=== PATIENT | male | born 1985 | race Caucasian/White ===

== ENCOUNTER 2021-04-19 13:07 | Emergency (ER) | payer MEDICAID ==
[2021-04-19] MEDS ORDERED: Diazepam 5 MG Tab PO STA (13:36)
--- NOTE | 2021-04-19 14:39 | EDM.PDOC ---
ED HPI GENERAL MEDICAL PROBLEM - General Chief Complaint: General Stated Complaint: LIGHT HEADED AND SHAKEY Time Seen by Provider: 04/19/21 14:00 Source of Information: Reports: Patient History Limitations: Reports: No Limitations - History of Present Illness INITIAL COMMENTS - FREE TEXT/NARRATIVE: Patient presented to the ED because of shakiness, dizziness. He drinks alcohol o n a daily basis. He drank at least 875 ml of vodka and 7 bottles of beer yesterday. - Related Data Allergies Allergy/AdvReac Type Severity Reaction Status Date / Time No Known Allergies Allergy Verified 04/19/21 13:25 Past Medical History Psychiatric History: Reports: Other (See Below) Other Psychiatric History: ALCOHOL ABUSE- DRINKS VODKA 1/2 A BOTTLE AND 7 CANS OF BEER DAILY Social & Family History - Tobacco Use Tobacco Use Status *Q: Current Every Day Tobacco User Years of Tobacco use: 17 Packs/Tins Daily: 1 - Caffeine Use Caffeine Use: Reports: Coffee, Soda - Alcohol Use Days Per Week of Alcohol Use: 7 Number of Drinks Per Day: 7 Total Drinks Per Week: 49 Date of Last Drink: 04/18/21 - Recreational Drug Use Recreational Drug Use: No ED ROS GENERAL - Review of Systems Review Of Systems: See Below Constitutional: Reports: No Symptoms HEENT: Reports: No Symptoms Respiratory: Reports: No Symptoms Cardiovascular: Reports: No Symptoms Endocrine: Reports: No Symptoms GI/Abdominal: Reports: No Symptoms : Reports: No Symptoms Musculoskeletal: Reports: No Symptoms Skin: Reports: No Symptoms Neurological: Reports: No Symptoms Psychiatric: Reports: No Symptoms ED EXAM, GENERAL - Physical Exam Exam: See Below Exam Limited By: No Limitations General Appearance: Alert, No Apparent Distress Ears: Normal External Exam, Normal Canal Nose: Normal Inspection, Normal Mucosa, No Blood Throat/Mouth: Normal Inspection, Normal Lips, Normal Teeth Head: Atraumatic, Normocephalic Neck: Normal Inspection, Supple, Non-Tender, Full Range of Motion Respiratory/Chest: No Respiratory Distress, Lungs Clear, Normal Breath Sounds, No Accessory Muscle Use, Chest Non-Tender Cardiovascular: Normal Peripheral Pulses, Regular Rate, Rhythm, No Edema, No Gallop, No JVD, No Murmur, No Rub GI/Abdominal: Normal Bowel Sounds, Soft, Non-Tender, No Organomegaly, No Distention, No Abnormal Bruit Back Exam: Normal Inspection, Full Range of Motion Extremities: Normal Inspection, Normal Range of Motion, Non-Tender, No Pedal Edema, Normal Capillary Refill Neurological: Alert, Oriented, CN II-XII Intact Psychiatric: Anxious Course - Vital Signs Text/Narrative:: Lab result was reviewed and discussed with patient Valium 10 mg PO x1 Last Recorded V/S: Last Vital Signs Temp 36.7 C 04/19/21 13:55 Pulse 83 04/19/21 13:55 Resp 19 04/19/21 13:55 BP 140/95 H 04/19/21 13:55 Pulse Ox 99 04/19/21 13:55 - Orders/Labs/Meds Labs: Laboratory Tests 04/19/21 04/19/21 04/19/21 Range/Units 13:50 13:50 13:50 WBC 6.6 (3.2-10.1) x10-3/uL RBC 4.98 (3.90-5.90) x10(6)uL Hgb 14.7 (12.9-17.7) g/dL Hct 44.2 (38.3-50.1) % MCV 88.8 (80.8-98.7) fL MCH 29.6 (27.0-33.3) pg MCHC 33.4 (28.7-35.3) g/dL RDW 13.1 (12.4-15.0) % Plt Count 323 (117-477) x10(3)uL MPV 7.4 (6.7-11.0) fL Neut % (Auto) 59.3 (40.3-71.8) % Lymph % (Auto) 30.1 (15.8-45.3) % Darke % (Auto) 7.6 (5.5-15.2) % Eos % (Auto) 2.0 (0.1-6.8) % Baso % (Auto) 1.0 (0.3-3.8) % Neut # (Auto) 3.9 (1.7-6.9) x10-3/uL Lymph # (Auto) 2.0 (0.5-4.5) x10-3/uL Darke # (Auto) 0.5 (0.0-1.2) x10-3/uL Eos # (Auto) 0.1 (0.0-0.6) x10-3/uL Baso # (Auto) 0.1 (0.0-0.3) x10-3/uL Sodium 139 (135-145) mmol/L Potassium 4.6 (3.5-5.3) mmol/L Chloride 101 (100-110) mmol/L Carbon Dioxide 31 (21-32) mmol/L BUN 7 (7-18) mg/dL Creatinine 1.1 (0.70-1.30) mg/dL Est Cr Clr Drug Dosing 91.06 mL/min Estimated GFR (MDRD) > 60 (>60) BUN/Creatinine Ratio 6.4 L (9-20) Glucose 88 (80-116) mg/dL Calcium 8.4 L (8.6-10.2) mg/dL Total Bilirubin 0.3 (0.1-1.3) mg/dL AST 53 H (5-25) IU/L ALT 98 H (12-36) U/L Alkaline Phosphatase 96 (56-112) IU/L Total Protein 7.7 (6.0-8.0) g/dL Albumin 4.2 (3.5-5.2) g/dL Globulin 3.5 g/dL Albumin/Globulin Ratio 1.2 Amylase 58 (25-115) U/L Lipase 92 (73-393) U/L Ethyl Alcohol < 0.03 (<0.03) % Meds: Medications Discontinued Medications Generic Name Dose Route Start Last Admin Trade Name Freq PRN Reason Stop Dose Admin Diazepam 10 mg 04/19/21 13:36 04/19/21 13:41 Diazepam 5 Mg Tab PO 04/19/21 13:37 10 mg NOW STA Administration Departure - Departure Time of Disposition: 14:45 Disposition: Home, Self-Care 01 Condition: Good Clinical Impression: Alcoholic liver disease - Discharge Information Instructions: Alcoholic Liver Disease, [id number] Referrals: PCP,None [Primary Care Provider] - Forms: ED Department Discharge Additional Instructions: Please read discharge instructions on alcoholic liver disease Quit drinking before it's too late Follow up with a doctor so you can be referred for an alcoholic treatment Sepsis Event Note (ED) - Evaluation Sepsis Screening Result: No Definite Risk - Focused Exam Vital Signs: Vital Signs Temp Pulse Resp BP Pulse Ox 04/19/21 13:55 36.7 C 83 19 140/95 H 99
== END 2021-04-19 14:55 | disposition home or self-care (01) ==
LOC: FB.ED 13:07
DX: K70.9 Alcoholic liver disease, unspecified (principal); Z72.0 Tobacco use
CPT/HCPCS: 36415; 80053; 80307; 82150; 83690; 85025; 99284; A9270-GY

== ENCOUNTER → 2021-04-29 13:16 | Emergency (ER) | payer MEDICAID, OTHER | END | disposition left against medical advice (07) | LOC: FB.ED 13:16 | DX: Z53.21 Procedure and treatment not carried out due to patient leaving prior to being seen by health care provider (principal) ==

== ENCOUNTER 2022-01-08 02:26 | Emergency (ER) | payer SELFPAY | END 2022-01-08 03:40 | disposition home or self-care (01) | LOC: FB.ED 02:26 | DX: F41.1 Generalized anxiety disorder (principal); Z72.0 Tobacco use | CPT/HCPCS: 99283; A9270-GY ==

== ENCOUNTER 2022-02-22 19:10 | Emergency (ER) | payer SELFPAY | END 2022-02-22 20:10 | disposition home or self-care (01) | LOC: FB.ED 19:10 | DX: K64.4 Residual hemorrhoidal skin tags (principal) | CPT/HCPCS: 99282; 99283 ==

== ENCOUNTER 2022-12-05 00:10 | Emergency (ER) | payer SELFPAY ==
[2022-12-05] MEDS ORDERED: LORazepam 1 MG Tab PO ONE (00:23)
[2022-12-05 01:38] LABS: ESTIMATED GFR 114 mL/min (>60)
== END 2022-12-05 02:12 | disposition home or self-care (01) ==
LOC: FB.ED 00:10
DX: F41.9 Anxiety disorder, unspecified (principal); F10.20 Alcohol dependence, uncomplicated
CPT/HCPCS: 36415; 80053; 80307; 82150; 83690; 83735; 84100; 85025; 99283; A9270-GY